=== PATIENT | female | born 1990 | race Caucasian/White ===

== ENCOUNTER 2020-01-03 00:50 | Emergency (ER) | payer SELFPAY ==
[2020-01-03 01:54] VITALS: BP 113/69; PULSE 84; TEMP 98.2
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
[2020-01-03 04:08] LABS: EOS % 1.3 % (0-4.5); HEMOGLOBIN 13.4 GM/dL (10.7-15.3); LYMPH % 19.5 % (8-40); MCH 27.1 pg (25.7-33.7); MCHC 32.8 g/dl (32.0-36.0); MEAN CELL VOLUME 82.6 fl (80-96); MEAN PLT VOLUME 8.8 fl (7.5-11.1); NEUT % 67.2 % (42.8-82.8); PLATELET COUNT 334 K/MM3 (134-434); RBC 4.96 M/mm3 (3.60-5.2); RDW 14.7 % (11.6-15.6); WHITE BLOOD COUNT 10.6 K/mm3 (4.0-10.0)
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
[2020-01-03 04:35] LABS: ALBUMIN 4.2 g/dl (3.4-5.0); BILIRUBIN,TOTAL 0.5 mg/dL (0.2-1); BLOOD UREA NITROGEN 13.4 mg/dL (7-18); CALCIUM 9.3 mg/dL (8.5-10.1); POTASSIUM 4.2 mmol/L (3.5-5.1); TOT PROT 7.8 g/dl (6.4-8.2)
--- NOTE | 2020-01-03 12:22 | EKG ---
Test Reason : Blood Pressure : / mmHG Vent. Rate : 081 BPM Atrial Rate : 081 BPM P-R Int : 136 ms QRS Dur : 074 ms QT Int : 378 ms P-R-T Axes : 056 058 064 degrees QTc Int : 439 ms NORMAL SINUS RHYTHM WITH SINUS ARRHYTHMIA NORMAL ECG NO PREVIOUS ECGS AVAILABLE Confirmed by APRIL SALES MD ([id number]) on 01/03/2020 12:22:12 PM Referred By: Confirmed By:APRIL SALES MD
== END 2020-01-03 05:46 | disposition home or self-care (01) ==
LOC: JER 00:50
DX: R42 Dizziness and giddiness (principal)
CPT/HCPCS: 36415; 70450-TC; 71045-TC-FY; 80053; 82550; 84484; 85025; 93005; 93010; 99283-25

== ENCOUNTER 2021-01-06 12:44 | Observation (INO) | payer OTHER ==
[2021-01-06 14:01] VITALS: BMI 27.4
[2021-01-06] MEDS ORDERED: SODIUM CHLORIDE 1,000 ML IV STA ×2 (14:26→17:40)
[2021-01-06] MEDS ORDERED: ACETAMINOPHEN 1000 MG/100 ML VIAL (NON FORMULARY) IVPB ONE (14:27)
[2021-01-06] MEDS ORDERED: ONDANSETRON 4 MG/2 ML VIAL IVPUSH ONE (14:27)
[2021-01-06] MEDS ORDERED: ACETAMINOPHEN INJECTION 100 ML IVPB ONE (15:04)
[2021-01-06] MEDS ORDERED: ONDANSETRON 4 MG/2 ML VIAL ONE (15:05)
[2021-01-06 15:38] LABS: EPI CELLS 6 /uL (0-25.1); HYALINE CASTS 1 /uL (0-3.1); PH,URINE 5.5 (5.0-8.0); URINE APPEARANCE CLOUDY; URINE BACTERIA 1307 /uL (0-1359); URINE BILIRUBIN NEGATIVE (NEGATIVE); URINE COLOR YELLOW; URINE GLUCOSE (UA) NEGATIVE (NEGATIVE); URINE KETONE TRACE (NEGATIVE); URINE LEUK ESTERASE 2+ (NEGATIVE); URINE NITRITE NEGATIVE (NEGATIVE); URINE PROTEIN 1+ (NEGATIVE); URINE UROBILINOGEN 0.2 mg/dL (0.2-1.0); URINE WBC 1586 /uL (0-25.8)
[2021-01-06 16:42] LABS: HEMATOCRIT 35.1 % (32.4-45.2); HEMOGLOBIN 11.9 GM/dL (10.7-15.3); MCH 29.4 pg (25.7-33.7); MEAN CELL VOLUME 86.6 fl (80-96); MEAN PLT VOLUME 9.6 fl (7.5-11.1); PLATELET COUNT 287 K/MM3 (134-434); RBC 4.06 M/mm3 (3.60-5.2); RDW 13.8 % (11.6-15.6); WHITE BLOOD COUNT 13.4 K/mm3 (4.0-10.0)
[2021-01-06 16:43] LABS: BASO % 0.1 % (0-2.0); LYMPH % 1.5 % (8-40); MONO % 3.6 % (3.8-10.2); NEUT % 94.8 % (42.8-82.8)
[2021-01-06 17:06] LABS: CHLORIDE 98 mmol/L (98-107); POTASSIUM 4.4 mmol/L (3.5-5.1); SODIUM 131 mmol/L (136-145)
[2021-01-06 17:08] LABS: CALCIUM 9.4 mg/dL (8.5-10.1)
[2021-01-06 17:09] LABS: ALBUMIN 3.8 g/dl (3.4-5.0); ANION GAP 8 MMOL/L (8-16); BLOOD UREA NITROGEN 9.3 mg/dL (7-18); CO2 26 mmol/L (21-32); GLUCOSE,RANDOM 93 mg/dL (74-106)
[2021-01-06 17:12] LABS: CREATININE 0.8 mg/dL (0.55-1.3); SGOT/AST 33 U/L (15-37); SGPT/ALT 18 U/L (13-61)
[2021-01-06 17:14] LABS: BILIRUBIN,TOTAL 0.6 mg/dL (0.2-1); TOT PROT 7.6 g/dl (6.4-8.2)
[2021-01-06 17:15] LABS: ALK PHOS 86 U/L (45-117)
[2021-01-06 18:10] LABS: PLATELET ESTIMATE ADEQUATE
[2021-01-06 18:19] LABS: URINE RBC 316.2 /uL (0-23.9); YEAST RARE (NEGATIVE)
[2021-01-06] MEDS ORDERED: oxyCODONE HCL 5 MG TABLET PO PRN (18:56)
[2021-01-06] MEDS ORDERED: ONDANSETRON 4 MG/2 ML VIAL IVPUSH PRN (18:56)
[2021-01-06] MEDS ORDERED: PROMETHAZINE HCL 25 MG/1 ML VIAL IVPUSH PRN (18:56)
[2021-01-06] MEDS ORDERED: MIDAZOLAM HCL 2 MG/2 ML SINGLE DOSE VIAL ONE ×2 (20:17)
[2021-01-06] MEDS ORDERED: PROPOFOL 20 ML ONE ×3 (20:17)
[2021-01-06] MEDS ORDERED: ONDANSETRON 4 MG/2 ML VIAL IM PRN (20:48)
[2021-01-06] MEDS: ACETAMINOPHEN 1000 MG/100 ML VIAL (NON FORMULARY) IVPB ONE ×2 (21:18→22:26)
[2021-01-06 22:39] LABS: URINE BARBITURATES NEGATIVE ng/ml (CUTOFF=200)
[2021-01-06 22:40] LABS: COCAINE, UR NEGATIVE ng/ml (CUTOFF=300); METHADONE, UR NEGATIVE ng/ml (CUTOFF=300); PHENCYCLIDINE,URINE NEGATIVE ng/ml (CUTOFF=25)
[2021-01-06 22:43] LABS: OPIATES, URI NEGATIVE ng/ml (CUTOFF=300); URINE AMPHETAMINES NEGATIVE ng/ml (CUTOFF=500)
[2021-01-06 22:45] LABS: URINE BENZODIAZEPINES POSITIVE ng/ml (CUTOFF=200)
[2021-01-07] MEDS ORDERED: ACETAMINOPHEN 325 MG TABLET (FP) PO ONE ×2 (08:25→08:45)
[2021-01-07 08:33] VITALS: BP 110/64; PULSE 103; TEMP 98.2
== END 2021-01-07 09:30 | disposition home or self-care (01) ==
LOC: JER 12:44 → JERBED 18:45 → J3W 21:57
PROVIDERS: ADMIT Obstetrics & Gynecology; ATTEND Obstetrics & Gynecology
PROC: 3E033NZ Introduction of Analgesics, Hypnotics, Sedatives into Peripheral Vein, Percutaneous Approach (ICD-10-PCS; 2021-01-06)
PROC: 3E033GC Introduction of Other Therapeutic Substance into Peripheral Vein, Percutaneous Approach (ICD-10-PCS; 2021-01-06)
PROC: 3E0337Z Introduction of Electrolytic and Water Balance Substance into Peripheral Vein, Percutaneous Approach (ICD-10-PCS; 2021-01-06)
PROC: 10D07Z6 Extraction of Products of Conception, Vacuum, Via Natural or Artificial Opening (ICD-10-PCS; principal; 2021-01-06 19:37)
DX: O02.0 Blighted ovum and nonhydatidiform mole (principal); Z3A.09 9 weeks gestation of pregnancy
CPT/HCPCS: 36415; 76817-TC; 80053; 80307; 81003; 84702; 84703; 85025; 86850; 86900; 86901; 87077; 87086; 88305-TC; 94760; 99285-25; C9803; G0378; J0131; U0003

== ENCOUNTER 2023-04-09 03:46 | Emergency (ER) | payer OTHER ==
[2023-04-09 04:00] VITALS: BP 128/88; PULSE 88; RESP 18; TEMP 98.8; BMI 26.6
[2023-04-09] MEDS ORDERED: LORazepam 2 MG TABLET PO ONE ×2 (04:28→04:34)
[2023-04-09] MEDS ORDERED: LORazepam 1 MG TABLET ONE (04:41)
== END 2023-04-09 06:26 | disposition home or self-care (01) ==
LOC: JER 03:46
DX: F13.20 Sedative, hypnotic or anxiolytic dependence, uncomplicated (principal); F15.10 Other stimulant abuse, uncomplicated
CPT/HCPCS: 93005; 93010; 99283-25